=== PATIENT | female | born 1930 | race African-American/Black ===

== ENCOUNTER 2017-09-18 14:09 | Observation (INO) ==
[2017-09-18 15:47] LABS: Basophils % 0.5 % (0.0-0.8); Eosinophils # 0.1 10*3/uL (0.0-0.87); Eosinophils % 1.6 % (0.00-10.9); Hemoglobin 12.5 GM/DL (12.0-16.0); Immature Granulocytes % 0.3 %; Immature Granulocytes Absolute 0.02 #; Lymphocytes # 1.9 10*3/uL (1.4-4.0); Lymphocytes % 31.2 % (21.3-54.2); Mean Corpuscular HGB Conc 32.1 GM/DL (32-36); Mean Corpuscular Hemoglobin 27 PG (27-34); Mean Corpuscular Volume 83.3 FL (87-102); Mean Platelet Volume 10.2 FL (9.6-12.0); Monocytes # 0.5 10*3/uL (0.11-0.8); Monocytes % 8.6 % (1.7-12.7); Neutrophils # 3.6 10*3/uL (1.4-7.4); Neutrophils % 57.8 % (38.7-73.9); Platelet Count 244 T/CUMM (130-400); Red Blood Count 4.68 MC/CUMM (3.8-5.5); Red Cell Distribution Width 14.6 % (9.3-17.3); White Blood Count 6.2 T/CUMM (4-12)
[2017-09-18 15:58] LABS: Apearance,Urine CLEAR (Clear); Bacteria,Urine Few /HPF (Few); Bilirubin,Urine Negative (Negative); Blood, Urine Small mg/dL (Negative); Glucose,Urine (UA) Negative (Negative); Hyaline Casts,Urine 4 /LPF (0-3); Ketones,Urine Negative (Negative); Mucus,Urine Occasional /LPF (Occasional); Nitrite,Urine Negative (Negative); Protein,Urine Negative; RBC,Urine <1 /HPF (0-4); Squamous Epithelial Cell,Urine Occasional /HPF (0-10); Urine Color Yellow (Yellow); Urine Specific Gravity 1.008 (1.001-1.035); Urine Urobilinogen < 2.0 EU/DL (0.2-1.0); WBC,Urine 1 /HPF (0-6)
[2017-09-18 16:09] LABS: Albumin 3.5 G/DL (3.4-5.0); Bilirubin,Total 0.4 MG/DL (0.2-1.0); Calcium 9.2 MG/DL (8.5-10.1); Osmolality,Calculated 280.4 MOS/KG (273-304); Potassium 2.6 MMOL/L (3.5-5.1); Total Protein 7.7 G/DL (6.4-8.3); Troponin I Only 0.026 NG/ML (0.00-0.045)
[2017-09-18] MEDS ORDERED: POTASSIUM CHLORIDE 20 MEQ TABLET PO STA (17:12)
[2017-09-18] MEDS ORDERED: ACETAMINOPHEN 325 MG TABLET PO PRN (17:13)
[2017-09-18] MEDS ORDERED: DEXT 5% NACL 0.45% KCL 20 MEQ 20 MEQ/1,000 ML BAG IV SCH (17:30)
[2017-09-18] MEDS: SODIUM CHLOR 0.9% KCL 40 MEQ 40 MEQ/1,000 ML BAG IV SCH (19:03)
[2017-09-18] MEDS: POTASSIUM CHLORIDE 20 MEQ TABLET PO SCH (20:46)
[2017-09-18] MEDS: DOCUSATE SODIUM 100 MG CAPSULE PO SCH (20:46)
[2017-09-19] MEDS: SODIUM CHLOR 0.9% KCL 40 MEQ 40 MEQ/1,000 ML BAG IV SCH ×3 (04:33→23:53)
[2017-09-19] MEDS: DOCUSATE SODIUM 100 MG CAPSULE PO SCH ×2 (09:56→21:56)
[2017-09-19] MEDS: POTASSIUM CHLORIDE 20 MEQ TABLET PO SCH ×4 (09:56→22:27)
[2017-09-19] MEDS: PANTOPRAZOLE 40 MG TABLET PO SCH (09:56)
[2017-09-19] MEDS: INDAPAMIDE 2.5 MG TABLET PO SCH (10:29)
[2017-09-19] MEDS: SPIRONOLACTONE 25 MG TABLET PO SCH (10:29)
[2017-09-19] MEDS: PROPRANOLOL 40 MG TABLET PO SCH ×2 (10:29→21:56)
[2017-09-19] MEDS: FLUoxetine 20 MG CAPSULE PO SCH (10:30)
[2017-09-19] MEDS: PRAVASTATIN 40 MG TABLET PO SCH (10:30)
[2017-09-19 10:41] LABS: Calcium 8.7 MG/DL (8.5-10.1); Osmolality,Calculated 286.8 MOS/KG (273-304); Potassium 3.7 MMOL/L (3.5-5.1)
[2017-09-19] MEDS: ONDANSETRON 4 MG/2 ML VIAL IV PRN (12:35)
[2017-09-19] MEDS: clonazePAM 0.5 MG TABLET PO SCH ×2 (14:36→21:57)
[2017-09-20 06:00] LABS: Calcium 8.3 MG/DL (8.5-10.1); Magnesium 1.9 MG/DL (1.8-2.4); Potassium 5.1 MMOL/L (3.5-5.1)
[2017-09-20] MEDS ORDERED: MAGNESIUM HYDROXIDE SUSP 30 ML UDCUP PO ONE (08:40)
[2017-09-20] MEDS: FLUoxetine 20 MG CAPSULE PO SCH (09:46)
[2017-09-20] MEDS: PROPRANOLOL 40 MG TABLET PO SCH ×2 (09:46→21:22)
[2017-09-20] MEDS: INDAPAMIDE 2.5 MG TABLET PO SCH (09:47)
[2017-09-20] MEDS: SPIRONOLACTONE 25 MG TABLET PO SCH (09:47)
[2017-09-20] MEDS: PANTOPRAZOLE 40 MG TABLET PO SCH (09:47)
[2017-09-20] MEDS: POTASSIUM CHLORIDE 20 MEQ TABLET PO SCH ×2 (09:47→21:22)
[2017-09-20] MEDS: clonazePAM 0.5 MG TABLET PO SCH ×3 (09:47→21:22)
[2017-09-20] MEDS: DOCUSATE SODIUM 100 MG CAPSULE PO SCH ×2 (09:47→21:22)
[2017-09-20] MEDS: PRAVASTATIN 40 MG TABLET PO SCH (09:47)
[2017-09-20] MEDS: ASPIRIN EC 81 MG TABLET PO SCH (09:49)
[2017-09-20] MEDS: ONDANSETRON 4 MG/2 ML VIAL IV PRN ×2 (10:18→16:02)
[2017-09-21 07:44] LABS: Basophils % 0.6 % (0.0-0.8); Eosinophils # 0.1 10*3/uL (0.0-0.87); Eosinophils % 2.5 % (0.00-10.9); Hematocrit 31.2 VOL% (35.7-47.0); Immature Granulocytes % 0.6 %; Immature Granulocytes Absolute 0.03 #; Lymphocytes # 1.9 10*3/uL (1.4-4.0); Lymphocytes % 36.3 % (21.3-54.2); Mean Corpuscular HGB Conc 32.1 GM/DL (32-36); Mean Corpuscular Hemoglobin 27 PG (27-34); Mean Corpuscular Volume 83.6 FL (87-102); Mean Platelet Volume 10.6 FL (9.6-12.0); Monocytes # 0.6 10*3/uL (0.11-0.8); Monocytes % 11.3 % (1.7-12.7); Neutrophils # 2.5 10*3/uL (1.4-7.4); Neutrophils % 48.7 % (38.7-73.9); Platelet Count 196 T/CUMM (130-400); Red Blood Count 3.73 MC/CUMM (3.8-5.5); Red Cell Distribution Width 14.5 % (9.3-17.3); White Blood Count 5.2 T/CUMM (4-12)
[2017-09-21 08:07] LABS: Calcium 8.7 MG/DL (8.5-10.1); Osmolality,Calculated 278.4 MOS/KG (273-304); Potassium 4.4 MMOL/L (3.5-5.1)
[2017-09-21] MEDS: ASPIRIN EC 81 MG TABLET PO SCH (10:22)
[2017-09-21] MEDS: FLUoxetine 20 MG CAPSULE PO SCH (10:22)
[2017-09-21] MEDS: INDAPAMIDE 2.5 MG TABLET PO SCH (10:22)
[2017-09-21] MEDS: DOCUSATE SODIUM 100 MG CAPSULE PO SCH ×2 (10:22→21:27)
[2017-09-21] MEDS: SPIRONOLACTONE 25 MG TABLET PO SCH (10:22)
[2017-09-21] MEDS: POTASSIUM CHLORIDE 10 MEQ TABLET PO ONE ×2 (10:23→10:25)
[2017-09-21] MEDS: clonazePAM 0.5 MG TABLET PO SCH ×3 (10:23→21:27)
[2017-09-21] MEDS: PROPRANOLOL 40 MG TABLET PO SCH ×2 (10:23→21:27)
[2017-09-21] MEDS: PRAVASTATIN 40 MG TABLET PO SCH (10:23)
[2017-09-21] MEDS ORDERED: POTASSIUM CHLORIDE 20 MEQ/15 ML UDCUP PO ONE (10:30)
[2017-09-21] MEDS: ONDANSETRON 4 MG/2 ML VIAL IV PRN (13:12)
[2017-09-22 06:35] LABS: Basophils % 0.4 % (0.0-0.8); Eosinophils # 0.2 10*3/uL (0.0-0.87); Eosinophils % 2.8 % (0.00-10.9); Hematocrit 34.6 VOL% (35.7-47.0); Hemoglobin 11.4 GM/DL (12.0-16.0); Immature Granulocytes % 0.5 %; Immature Granulocytes Absolute 0.03 #; Lymphocytes # 1.9 10*3/uL (1.4-4.0); Lymphocytes % 33.8 % (21.3-54.2); Mean Corpuscular HGB Conc 32.9 GM/DL (32-36); Mean Corpuscular Hemoglobin 27 PG (27-34); Mean Corpuscular Volume 81.6 FL (87-102); Mean Platelet Volume 11.8 FL (9.6-12.0); Monocytes # 0.9 10*3/uL (0.11-0.8); Monocytes % 15.7 % (1.7-12.7); Neutrophils # 2.6 10*3/uL (1.4-7.4); Neutrophils % 46.8 % (38.7-73.9); Platelet Count 135 T/CUMM (130-400); Red Blood Count 4.24 MC/CUMM (3.8-5.5); Red Cell Distribution Width 14.6 % (9.3-17.3); White Blood Count 5.6 T/CUMM (4-12)
[2017-09-22 08:25] LABS: Eosinophils 2 % (0-10); Hypochromasia Slight; Lymphocytes 39 % (20-55); Macrocytosis 1+; Platelet Estimate Adequate; Segmented Neutrophils 47 % (50-85); Total Cells Counted 100
[2017-09-22] MEDS: FLUoxetine 20 MG CAPSULE PO SCH (09:03)
[2017-09-22] MEDS: SPIRONOLACTONE 25 MG TABLET PO SCH (09:03)
[2017-09-22] MEDS: INDAPAMIDE 2.5 MG TABLET PO SCH (09:03)
[2017-09-22] MEDS: PROPRANOLOL 40 MG TABLET PO SCH (09:03)
[2017-09-22] MEDS: PRAVASTATIN 40 MG TABLET PO SCH (09:04)
[2017-09-22] MEDS: ASPIRIN EC 81 MG TABLET PO SCH (09:04)
[2017-09-22] MEDS: DOCUSATE SODIUM 100 MG CAPSULE PO SCH (09:04)
[2017-09-22] MEDS: clonazePAM 0.5 MG TABLET PO SCH ×2 (09:04→14:33)
[2017-09-22 16:47] VITALS: BP 108/69
== END 2017-09-22 16:57 | disposition home or self-care (01) ==
LOC: EDUNIT# → N.EDINP 14:09 → N.ED 14:09 → N.EDINP 18:04 → N.2E 18:20
PROVIDERS: ADMIT Family Medicine; ATTEND Family Medicine

== ENCOUNTER 2017-11-23 12:49 | Inpatient (IN) ==
[2017-11-23] MEDS ORDERED: ONDANSETRON 4 MG/2 ML VIAL IV STA (13:20)
[2017-11-23] MEDS ORDERED: PANTOPRAZOLE 40 MG VIAL IV STA ×2 (13:24)
[2017-11-23] MEDS ORDERED: ONDANSETRON 4 MG/2 ML VIAL ONE (13:27)
[2017-11-23] MEDS ORDERED: PANTOPRAZOLE 40 MG VIAL IV ONE (13:27)
[2017-11-23 14:05] LABS: Basophils % 0.2 % (0.0-0.8); Hematocrit 35.9 VOL% (35.7-47.0); Hemoglobin 11.5 GM/DL (12.0-16.0); Immature Granulocytes % 0.2 %; Immature Granulocytes Absolute 0.02 #; Lymphocytes # 1.5 10*3/uL (1.4-4.0); Lymphocytes % 16.1 % (21.3-54.2); Mean Corpuscular Hemoglobin 27 PG (27-34); Mean Corpuscular Volume 82.9 FL (87-102); Mean Platelet Volume 10.4 FL (9.6-12.0); Monocytes # 1.3 10*3/uL (0.11-0.8); Monocytes % 14.1 % (1.7-12.7); Neutrophils # 6.5 10*3/uL (1.4-7.4); Neutrophils % 69.4 % (38.7-73.9); Platelet Count 285 T/CUMM (130-400); Red Blood Count 4.33 MC/CUMM (3.8-5.5); Red Cell Distribution Width 14.4 % (9.3-17.3); White Blood Count 9.4 T/CUMM (4-12)
[2017-11-23 14:19] LABS: INR 1.1; PT Patient Result 11.4 SECS; Partial Thromboplastin Time 24.9 SECS (0-40)
[2017-11-23] MEDS ORDERED: ACETAMINOPHEN 325 MG TABLET PO PRN (14:39)
[2017-11-23] MEDS ORDERED: ONDANSETRON 4 MG/2 ML VIAL IV PRN (14:39)
[2017-11-23] MEDS ORDERED: HYDROmorphone 2 MG/1 ML VIAL IV PRN (14:39)
[2017-11-23 14:43] LABS: Albumin 3.2 G/DL (3.4-5.0); Bilirubin,Total 0.5 MG/DL (0.2-1.0); Calcium 9.4 MG/DL (8.5-10.1); Osmolality,Calculated 285.3 MOS/KG (273-304); Potassium 2.7 MMOL/L (3.5-5.1); Total Protein 7.4 G/DL (6.4-8.3)
[2017-11-23] MEDS ORDERED: SODIUM CHLORIDE 0.9% 1,000 ML IV SCH (15:00)
[2017-11-23] MEDS ORDERED: SODIUM CHLOR 0.9% KCL 40 MEQ 40 MEQ/1,000 ML BAG IV ONE (15:06)
[2017-11-23] MEDS ORDERED: POTASSIUM CHLORIDE INJ 40 MEQ in SODIUM CHLORIDE 0.9% 1,000 ML IV SCH (15:30)
[2017-11-23] MEDS: POTASSIUM CHLORIDE INJ 20 MEQ in SODIUM CHLORIDE 0.9% 1,000 ML IV SCH (22:07)
[2017-11-24 00:02] LABS: Hematocrit 31.9 VOL% (35.7-47.0); Hemoglobin 10.3 GM/DL (12.0-16.0)
[2017-11-24 00:35] LABS: Calcium 9.2 MG/DL (8.5-10.1); Magnesium 1.9 MG/DL (1.8-2.4); Osmolality,Calculated 291.8 MOS/KG (273-304)
[2017-11-24 07:34] LABS: Basophils % 0.5 % (0.0-0.8); Eosinophils # 0.1 10*3/uL (0.0-0.87); Eosinophils % 1.1 % (0.00-10.9); Hematocrit 30.1 VOL% (35.7-47.0); Hemoglobin 9.8 GM/DL (12.0-16.0); Immature Granulocytes % 0.5 %; Immature Granulocytes Absolute 0.03 #; Lymphocytes # 1.9 10*3/uL (1.4-4.0); Lymphocytes % 31.1 % (21.3-54.2); Mean Corpuscular HGB Conc 32.6 GM/DL (32-36); Mean Corpuscular Hemoglobin 27 PG (27-34); Mean Corpuscular Volume 81.8 FL (87-102); Mean Platelet Volume 10.4 FL (9.6-12.0); Monocytes # 0.8 10*3/uL (0.11-0.8); Monocytes % 12.6 % (1.7-12.7); Neutrophils # 3.4 10*3/uL (1.4-7.4); Neutrophils % 54.2 % (38.7-73.9); Platelet Count 235 T/CUMM (130-400); Red Blood Count 3.68 MC/CUMM (3.8-5.5); Red Cell Distribution Width 14.7 % (9.3-17.3); White Blood Count 6.2 T/CUMM (4-12)
[2017-11-24 08:09] LABS: Calcium 8.5 MG/DL (8.5-10.1); Magnesium 1.7 MG/DL (1.8-2.4); Osmolality,Calculated 290.7 MOS/KG (273-304); Potassium 3.1 MMOL/L (3.5-5.1)
[2017-11-24] MEDS: PANTOPRAZOLE 40 MG VIAL IV SCH (08:32)
[2017-11-24] MEDS: SODIUM CHLOR 0.9% KCL 20 MEQ 20 MEQ/1,000 ML BAG IV SCH (08:32)
[2017-11-24] MEDS: POTASSIUM CHLORIDE INJ 20 MEQ in SODIUM CHLORIDE 0.9% 1,000 ML IV SCH (09:15)
[2017-11-25] MEDS: SODIUM CHLOR 0.9% KCL 20 MEQ 20 MEQ/1,000 ML BAG IV SCH ×3 (00:03→15:26)
[2017-11-25 05:42] LABS: Basophils % 0.6 % (0.0-0.8); Eosinophils # 0.2 10*3/uL (0.0-0.87); Eosinophils % 3.9 % (0.00-10.9); Hematocrit 29.3 VOL% (35.7-47.0); Hemoglobin 8.9 GM/DL (12.0-16.0); Immature Granulocytes % 0.2 %; Immature Granulocytes Absolute 0.01 #; Lymphocytes % 38.9 % (21.3-54.2); Mean Corpuscular HGB Conc 30.4 GM/DL (32-36); Mean Corpuscular Hemoglobin 26 PG (27-34); Mean Corpuscular Volume 85.7 FL (87-102); Mean Platelet Volume 10.2 FL (9.6-12.0); Monocytes # 0.6 10*3/uL (0.11-0.8); Monocytes % 11.4 % (1.7-12.7); Neutrophils # 2.3 10*3/uL (1.4-7.4); Platelet Count 193 T/CUMM (130-400); Red Blood Count 3.42 MC/CUMM (3.8-5.5); Red Cell Distribution Width 14.9 % (9.3-17.3); White Blood Count 5.2 T/CUMM (4-12)
[2017-11-25 06:27] LABS: Calcium 8.3 MG/DL (8.5-10.1); Magnesium 1.7 MG/DL (1.8-2.4)
[2017-11-25 06:28] LABS: Osmolality,Calculated 286.8 MOS/KG (273-304); Potassium 3.3 MMOL/L (3.5-5.1); Thyroid Stimulating Hormone 0.361 uIU/ml (0.358-3.74)
[2017-11-25] MEDS: PANTOPRAZOLE 40 MG VIAL IV SCH (08:12)
[2017-11-25] MEDS ORDERED: PROPOFOL 200 MG/20 ML VIAL IV ONE (14:50)
[2017-11-25] MEDS ORDERED: LIDOCAINE 2% 5 ML VIAL ONE (14:50)
[2017-11-25] MEDS: MAGNESIUM CHLORIDE 64 MG TABLET PO SCH ×2 (14:57→20:35)
[2017-11-26 07:00] LABS: Basophils % 0.2 % (0.0-0.8); Eosinophils # 0.2 10*3/uL (0.0-0.87); Eosinophils % 3.8 % (0.00-10.9); Hematocrit 27.3 VOL% (35.7-47.0); Hemoglobin 8.3 GM/DL (12.0-16.0); Immature Granulocytes % 0.2 %; Immature Granulocytes Absolute 0.01 #; Lymphocytes # 1.6 10*3/uL (1.4-4.0); Lymphocytes % 35.1 % (21.3-54.2); Mean Corpuscular HGB Conc 30.4 GM/DL (32-36); Mean Corpuscular Hemoglobin 26 PG (27-34); Mean Corpuscular Volume 84.8 FL (87-102); Mean Platelet Volume 11.1 FL (9.6-12.0); Monocytes # 0.7 10*3/uL (0.11-0.8); Monocytes % 14.6 % (1.7-12.7); Neutrophils # 2.1 10*3/uL (1.4-7.4); Neutrophils % 46.1 % (38.7-73.9); Platelet Count 189 T/CUMM (130-400); Red Blood Count 3.22 MC/CUMM (3.8-5.5); Red Cell Distribution Width 14.8 % (9.3-17.3); White Blood Count 4.5 T/CUMM (4-12)
[2017-11-26 07:33] LABS: Calcium 8.2 MG/DL (8.5-10.1); Magnesium 1.7 MG/DL (1.8-2.4); Osmolality,Calculated 289.6 MOS/KG (273-304); Potassium 3.6 MMOL/L (3.5-5.1)
[2017-11-26] MEDS: PANTOPRAZOLE 40 MG VIAL IV SCH (08:51)
[2017-11-26] MEDS: MAGNESIUM CHLORIDE 64 MG TABLET PO SCH (08:51)
[2017-11-26 12:14] VITALS: BP 128/95
== END 2017-11-26 13:20 | disposition home or self-care (01) | DRG 370 ==
LOC: N.ED 12:49 → N.EDINP 14:39 → N.4E 17:22
PROVIDERS: ADMIT Family Medicine; ATTEND Family Medicine